=== PATIENT | male | born 1955 | race Caucasian/White ===

== ENCOUNTER → 2019-09-08 | Day surgery (SDC) | payer OTHER ==
[~2019-09-08] MED LIST: ADVIL PM CAPLE1 EACH PO; ASPIRIN81 MG PO; ATORVASTATIN CA10 MG PO; ENALAPRIL-HCTZ1 EAC1 PO; FENTANYL CITRATE/PF 100MCG/2 ML INJ ONE; FUROSEMIDE20 MG PO; HYDROCODON-ACE1 EA12 PO; JANUVIA100 MG PO; LYRICA50 MG PO; LYRICA75 MG PO; METFORMIN HCL500 MG PO; MIDAZOLAM HCL 2 MG/2 ML VIAL ONE; OR PHACO EYE KIT ONE; PREOP PHACO EYE KIT ONE
[2019-09-08 11:35] VITALS: BP 139/73
== END | disposition home or self-care (01) ==
LOC: OR 07:41
PROVIDERS: ATTEND Ophthalmology
DX: H25.12 Age-related nuclear cataract, left eye (principal); E11.9 Type 2 diabetes mellitus without complications; I69.354 Hemiplegia and hemiparesis following cerebral infarction affecting left non-dominant side; E78.5 Hyperlipidemia, unspecified; I10 Essential (primary) hypertension; K58.9 Irritable bowel syndrome, unspecified; B19.20 Unspecified viral hepatitis C without hepatic coma; M19.90 Unspecified osteoarthritis, unspecified site; R06.02 Shortness of breath; Z01.812 Encounter for preprocedural laboratory examination; Z11.59 Encounter for screening for other viral diseases; Z79.84 Long term (current) use of oral hypoglycemic drugs; Z79.82 Long term (current) use of aspirin; Z79.4 Long term (current) use of insulin; Z90.2 Acquired absence of lung [part of]; Z90.5 Acquired absence of kidney; Z87.891 Personal history of nicotine dependence
CPT/HCPCS: 36415; 66984; 82948; 87635; J2250; J3010

== ENCOUNTER → 2019-09-22 | Day surgery (SDC) | payer OTHER ==
[2019-09-22 14:30] VITALS: BP 133/79
== END | disposition home or self-care (01) ==
LOC: OR 10:30
PROVIDERS: ATTEND Ophthalmology
DX: H25.11 Age-related nuclear cataract, right eye (principal); I69.351 Hemiplegia and hemiparesis following cerebral infarction affecting right dominant side; I10 Essential (primary) hypertension; E11.9 Type 2 diabetes mellitus without complications; B19.20 Unspecified viral hepatitis C without hepatic coma; R06.02 Shortness of breath; Z01.812 Encounter for preprocedural laboratory examination; Z11.59 Encounter for screening for other viral diseases; Z79.82 Long term (current) use of aspirin; Z79.84 Long term (current) use of oral hypoglycemic drugs; Z90.2 Acquired absence of lung [part of]; Z90.5 Acquired absence of kidney
CPT/HCPCS: 36415; 66984; 82948; 87635; J2250; J3010